=== PATIENT | female | born 1970 | race Caucasian/White ===

== ENCOUNTER 2017-12-28 13:23 | Emergency (ER) | payer BC ==
[2017-12-28 13:53] VITALS: BP 131/87
== END 2017-12-28 13:57 | disposition left against medical advice (07) ==
LOC: UCEAST 13:23
DX: R22.40 Localized swelling, mass and lump, unspecified lower limb (principal); Z53.21 Procedure and treatment not carried out due to patient leaving prior to being seen by health care provider

== ENCOUNTER 2017-12-28 14:22 | Emergency (ER) | payer BC ==
--- NOTE | 2017-12-28 16:42 | RAD ---
INDICATION: Pain at the left medial malleolus COMPARISON: None. TECHNIQUE: 3 views of the left ankle were obtained. FINDINGS: The well corticated bones exhibit normal alignment. Joint spaces appear maintained. No fracture is seen. IMPRESSION: Normal ankle radiograph. If the patient's symptoms persist, follow-up imaging is recommended.
--- NOTE | 2017-12-28 17:23 | RAD ---
INDICATION: LEFT lower extremity swelling. Pain and edema. COMPARISON: No relevant prior exams available on the [facility] PACS for comparison. TECHNIQUE: Salazar scale, color Doppler, and spectral analysis of the deep veins of the LEFT lower extremity. Vessel compression, phasicity, and augmentation assessed. REPORT: The LEFT common femoral, great saphenous, profunda femoral, duplicated femoral, popliteal, peroneal, and posterior tibial veins are patent. No loculated fluid collection evident in the region of the LEFT ankle swelling. Patency of the RIGHT common femoral vein documented. IMPRESSION: No evidence for LEFT lower extremity deep venous thrombosis.
--- NOTE | 2017-12-28 17:56 | ED ---
Lower Extremity - HPI Summary HPI Summary: Pt presents w/ Lt instep/ankle area edema this morning upon waking. Did not notice this yesterday nor does she recall acute injury. The area is sore to touch and sore to bear weight but this is not intolerable. No pain w/ ROM. Denies numbness, tingling, weakness as well as calf pain/tenderness, redness, swelling, CP, SOB, cough, hemoptysis, back pain, fever, racing heart. She denies recent travel, trauma, smoking, h/o cancer/clotting d/o. Has a mirena IUD. Has some varicose veins on her Rt LE - non-painful. She wears different footwear including wedges, heels, sandals, and sneakers. She walks for exercise and does not recall any change in activity. Has not tried anything for pain/ swelling prior to arrival. - History of Current Complaint Chief Complaint: EDExtremityLower Stated Complaint: Pain/lump LT ANKLE Time Seen by Provider: 12/28/17 14:46 Hx Obtained From: Patient, Family/[employer] In[employer]ter - Hx Last Menstrual Period: 12/19/17 Pain Intensity: 99 - Allergies/Home Medications Allergies/Adverse Reactions: Allergies Allergy/AdvReac Type Severity Reaction Status Date / Time Penicillins Allergy Hives Verified 12/28/17 14:37 PMH/Surg Hx/FS Hx/Imm Hx Previously Healthy: Yes Endocrine/Hematology History: Denies: Hx Anticoagulant Therapy, Hx Blood Disorders, Hx Unexplained Bleeding , Hx Coagulopothy - Cancer History Hx Chemotherapy: No Hx Radiation Therapy: No - Surgical History Surgery Procedure, Year, and Place: ovarian cyst ,thyroid cyst removed hernais x 2 Infectious Disease History: Denies: Traveled Outside the [place] in Last 30 Days - Family History Known Family History: Positive: None - Social History Occupation: Employed Full-time Lives: With Family Alcohol Use: Daily Hx Substance Use: No Substance Use Type: Reports: None Hx Tobacco Use: No Smoking Status (MU): Never Smoked Tobacco Review of Systems Constitutional: Negative Negative: Fever, Chills, Fatigue Cardiovascular: Negative Respiratory: Negative Positive: no symptoms reported Musculoskeletal: Other - soft tissue edema Positive: Bruising Neurological: Negative Psychological: Normal All Other Systems Reviewed And Are Negative: Yes Physical Exam Triage Information Reviewed: Yes Vital Signs On Initial Exam: Initial Vitals Temp Pulse Resp BP Pulse Ox 99.6 F 81 16 124/80 18 12/28/17 14:31 12/28/17 14:31 12/28/17 14:31 12/28/17 14:31 12/28/17 14:31 Vital Signs Reviewed: Yes Appearance: Positive: Well-Appearing, No Pain Distress, Well-Nourished Skin: Positive: Warm, Skin Color Reflects Adequate Perfusion, Dry - mild blue hue/superficial capillaries observed over affected area - no erythema, no fever , no skin breakdown, no lesions here Head/Face: Positive: Normal Head/Face Inspection Eyes: Positive: EOMI ENT: Positive: Hearing grossly normal Respiratory/Lung Sounds: Positive: Breath Sounds Present Cardiovascular: Positive: Pulses are Symmetrical in both Upper and Lower Extremities. Negative: Leg Edema Left - (-) Jese's B/L, Leg Edema Right Musculoskeletal: Positive: Strength/ROM Intact - no pain or restriction w/ movement of toes/ankle; plantar fascia and heel area NTTP, Pain @ - mild TTP over quarter sized area of Lt medial instep/ankle inferior to medial malleolus - no fever to touch, no deformity Neurological: Positive: Normal, Sensory/Motor Intact, Alert, Oriented to Person Place, Time, CN Intact II-III Psychiatric: Positive: Normal Diagnostics - Vital Signs Vital Signs Temp Pulse Resp BP Pulse Ox 12/28/17 14:31 99.6 F 81 16 124/80 18 - Laboratory Lab Statement: Any lab studies that have been ordered have been reviewed, and results considered in the medical decision making process. Lower Extremity Course/Dx - Course Course Of Treatment: U/S: no DVT or phlebitis. Suspect soft tissue DANELLE edema from mild tissue/tendon injury d/t trauma of walking in less than supportive footwear. Advised to monitor for s/sx of other pathologies budding. She will rest and f/u w/ PCP if persists. - Diagnoses Provider Diagnoses: Swelling of left foot Discharge - Sign-Out/Discharge Documenting (check all that apply): Patient Departure - Discharge Plan Condition: Stable Disposition: HOME Patient Education Materials: Arthralgia (ED) Referrals: Myriam Shah MD [Primary Care Provider] - Additional Instructions: The definitive cause of your left inner ankle/instep swelling and pain was not identified today however clot, fracture and dislocation have been ruled out. It is advised that you try rest, ice, elevation and supportive footwear along with NSAID's with food. If your symptoms seem to be getting worse or not improving in 1-2 weeks' time, follow-up with your PCP. Call today to schedule follow-up. * If in the meantime you develop worsening of swelling, streaking, fever, chills , inability to bear weight or go through range of motion, numbness, tingling or weakness of your foot or ankle, return to the emergency department. - Billing Disposition and Condition Condition: STABLE Disposition: Home
[2017-12-28 18:09] VITALS: BP 111/71
== END 2017-12-28 18:07 | disposition home or self-care (01) ==
LOC: ED 14:22
DX: R60.9 Edema, unspecified (principal)
CPT/HCPCS: 99282